=== PATIENT | female | born 1975 | race Hispanic/Latino ===

== ENCOUNTER 2024-09-17 12:39 | Emergency (ER) | payer BC, SELFPAY ==
[2024-09-17] MEDS ORDERED: Iopamidol 370 76% 100 ML VIAL ONE (13:52)
[2024-09-17] MEDS ORDERED: Ondansetron PF 4 MG/2 ML Vial ONE (13:56)
[2024-09-17] MEDS ORDERED: Aspirin Chewable 81 MG TAB ONE (13:56)
[2024-09-17 14:08] LABS: #Basophils Less than 0.03 10x3/uL (0.0-0.2); #Eosinophils 0.04 10x3/uL (0.0-0.5); #Monocytes 0.59 10x3/uL (0.0-1.1); #Neutrophils 5.84 10x3/uL (1.5-8.4); %Basophils 0.2 % (0.0-2.0); %Eosinophils 0.5 % (0.0-6.0); %Lymphocytes 26.0 % (18.0-47.0); %Monocytes 6.7 % (0.0-10.0); %Neutrophils 66.1 % (40.0-75.0); Hematocrit 39.4 % (34.9-44.5); Hemoglobin 12.8 g/dL (12.0-15.5); Mean Corpuscular Hemoglobin 27.6 pg (27.0-33.0); Mean Corpuscular Volume 84.9 fL (81.6-98.3); Platelet Count 230 10x3/uL (150-450); Red Blood Cell (RBC) Count 4.64 10x6/uL (3.90-5.03); White Blood Cell (WBC) Count 8.82 10x3/uL (3.5-10.5)
[2024-09-17 14:23] LABS: ALT (SGPT) 80 U/L (Less than 34); AST (SGOT) 48 U/L (11-34); Albumin 4.2 g/dL (3.1-4.5); Alkaline Phosphatase 60 U/L (40-110); Anion Gap 13 mmol/L (10-20); BUN (Urea Nitrogen) 20 mg/dL (7.0-18.7); Bilirubin, Total 0.4 mg/dL (0.3-1.2); Calc. Creatinine Clearance 0 mL/min (70-130); Calcium 9.9 mg/dL (7.8-10.44); Carbon Dioxide 28 mmol/L (22-29); Chloride 102 mmol/L (98-107); Globulin 3.9 g/dL (2.4-3.5); Glucose 105 mg/dL (70-105); Lipase 31 U/L (8-78); Potassium 3.8 mmol/L (3.5-5.1); Sodium 139 mmol/L (136-145)
[2024-09-17 14:29] LABS: Troponin I Less than 0.010 ng/mL (< 0.028)
[2024-09-17 16:31] LABS: Troponin I Less than 0.010 ng/mL (< 0.028)
[2024-09-17] MEDS ORDERED: predniSONE 20 MG TAB ONE (17:37)
== END 2024-09-17 19:00 | disposition home or self-care (01) ==
LOC: CSHERS 12:39
DX: R07.89 Other chest pain (principal); J20.9 Acute bronchitis, unspecified
CPT/HCPCS: 36415; 71045; 71275; 80053; 83690; 83880; 84484; 85025; 85379; 93005; 96374; 96375; J2270; J2405; J7512; J7620; Q9967